=== PATIENT | male | born 1950 | race Caucasian/White ===

== ENCOUNTER → 2017-10-06 | Outpatient (CLI) | payer MEDICARE ==
[~2017-10-06] MED LIST: ALBU3IS INH; ASCO500 PO; ASPI81EC PO; Amiodarone HCl400 MG PO; BUDE6HFA INH; BUPR75 PO; CLON.5 PO; Carbidopa-Levo1 EAC1 PO; FERR325 PO; FISH1000 PO; Flonase 0.05% N16 GM; GABA300 PO; LOSA50 PO; METO50 PO; MINO50 PO; MONT10T PO; Neupro1 EAC1 TOP; Norco 5-325 Ta1 EACH PO; POTCHL20ER PO; SERT50 PO; SPIR25 PO; TEMA15 PO; TIOT18 INH; TORSE20 PO; Toprol Xl50 MG PO; Viagra100 MG PO; XARELTO20 MG PO
== END | disposition home or self-care (01) ==
LOC: OLS 07:00
DX: R05 Cough (principal)
CPT/HCPCS: 87070; 87205

== ENCOUNTER 2017-10-14 15:56 | Emergency (ER) | payer MEDICARE ==
[~2017-10-14] VITALS: Ht 177.8 cm; Wt 136.1 kg
[2017-10-14 18:35] LABS: BASOPHILS ABSOLUTE AUTO 0.06 K/mm3 (0.00-0.23); BASOPHILS PERCENT AUTO 0 % (0-2); EOSINOPHILS ABSOLUTE AUTO 0.28 K/mm3 (0.00-0.68); EOSINOPHILS PERCENT AUTO 2 % (0-6); Hemoglobin 12.6 g/dL (13.5-17.5); IMMATURE GRAN ABSOLUTE AUTO 0.16 K/mm3 (0.00-0.10); IMMATURE GRAN PERCENT AUTO 1 % (0-1); LYMPHOCYTES ABSOLUTE AUTO 3.78 K/mm3 (0.84-5.20); LYMPHOCYTES PERCENT AUTO 22 % (21-46); MONOCYTES ABSOLUTE AUTO 1.05 K/mm3 (0.16-1.47); MONOCYTES PERCENT AUTO 6 % (4-13); Mean Corpuscular HGB 27.5 pg (26.0-34.0); Mean Corpuscular HGB Conc 33.2 g/dL (31.5-36.5); Mean Corpuscular Volume 83 fL (80-100); Mean Platelet Volume 8.8 fL (9.1-12.4); NEUTROPHILS ABSOLUTE AUTO 11.52 K/mm3 (1.96-9.15); NEUTROPHILS PERCENT AUTO 68 % (41-73); Platelet Count 312 K/mm3 (150-400); RDW Coefficient Variation 15.4 % (11.7-14.2); RDW Standard Deviation 46.5 fL (35.1-46.3); Red Blood Cell Count 4.58 M/mm3 (4.30-5.90); White Blood Cell Count 16.85 K/mm3 (4.00-11.30)
[2017-10-14 18:37] LABS: Source, Urine Catheter
[2017-10-14 18:43] LABS: Bilirubin, Urine Neg (Neg); Blood, Urine 2+ (Neg); Glucose Qualitative, Urine Neg (Neg); Ketones, Urine Neg (Neg); Leukocyte Esterase, Urine Neg (Neg); Nitrite, Urine Neg (Neg); Protein, Urine Neg (Neg); Urobilinogen, Urine NORM (Normal)
[2017-10-14 18:50] LABS: Color, Urine Pale Yellow (P-Yellow)
[2017-10-14 18:51] LABS: Appearance, Urine Clear (Clear)
[2017-10-14 18:53] LABS: White Blood Cells, Urine 0-2 /hpf (0-5)
[2017-10-14 18:54] LABS: Bacteria Few /hpf; Squamous Epithelial Cells Not Seen /hpf (Few)
[2017-10-14 19:22] LABS: Bun/Creatinine Ratio 33.9 (12.0-20.0); Calcium, Blood 9.2 mg/dL (8.5-10.1); Creatinine, Blood 1.65 mg/dL (0.60-1.20); Potassium, Blood 3.8 mmol/L (3.5-5.5)
== END 2017-10-14 20:15 | disposition home or self-care (01) ==
LOC: ER 15:56
PROVIDERS: Emergency Medicine
DX: N32.0 Bladder-neck obstruction (principal); I10 Essential (primary) hypertension; I48.91 Unspecified atrial fibrillation
CPT/HCPCS: 36415; 51702; 80048; 81001; 85025; 99283

== ENCOUNTER → 2018-10-23 | Outpatient (CLI) | payer MEDICARE | END | disposition home or self-care (01) | LOC: LAB SHORT 12:04 → LAB 12:04 | DX: R05 Cough (principal) | CPT/HCPCS: 87070; 87205 ==

== ENCOUNTER 2019-07-16 06:19 | Day surgery (SDC) | payer MEDICARE ==
[~2019-07-16] VITALS: Ht 177.8 cm; Wt 145.0 kg
[~2019-07-16 06:19] MED LIST changes: +Ipratropium Bro30 ML; +Neupro1 EAC1 TD; +TRAZ50 PO
[2019-07-16] MEDS ORDERED: AMLO10 PO (07:00)
--- NOTE | 2019-07-16 07:09 | NUR ---
CONSUELO TANG RN STARTED IV; 20 G LEFT HAND.
--- NOTE | 2019-07-16 07:14 | NUR ---
DR CALDERON IN ROOM TO SEE PT.
--- NOTE | 2019-07-16 07:43 | NUR ---
TWO 200 J SYNCHRONIZED SHOCKS DELIVERED; PT TOLERATED WELL.
--- NOTE | 2019-07-16 07:57 | NUR ---
PT'S IN ROOM; CALL LIGHT IN REACH. PT DENIES CHEST PAIN.
--- NOTE | 2019-07-16 08:52 | NUR ---
DISCHARGE INSTRUCTIONS REVIEWED ALL QUESTIONS ANSWERED. 20 G IV DISCONTINUED FROM LEFT HAND WITH INTACT CANNULA. PT ESCORTED OUT VIA WHEELCHAIR ESCORT.
== END 2019-07-16 22:39 | disposition home or self-care (01) ==
LOC: MHTC 06:19
DX: I48.0 Paroxysmal atrial fibrillation (principal); I11.9 Hypertensive heart disease without heart failure; I51.89 Other ill-defined heart diseases; J44.9 Chronic obstructive pulmonary disease, unspecified; E66.2 Morbid (severe) obesity with alveolar hypoventilation; Z68.42 Body mass index [BMI] 45.0-49.9, adult; Z79.01 Long term (current) use of anticoagulants; Z79.51 Long term (current) use of inhaled steroids; Z79.899 Other long term (current) drug therapy; Z99.89 Dependence on other enabling machines and devices; Z87.891 Personal history of nicotine dependence; Z88.8 Allergy status to other drugs, medicaments and biological substances; Z91.040 Latex allergy status; Z91.038 Other insect allergy status; Z91.030 Bee allergy status
CPT/HCPCS: 92960; 93005; 93010; J0282; J7120

== ENCOUNTER 2020-04-18 14:42 | Day surgery (SDC) | payer OTHER, MEDICARE ==
[~2020-04-18 14:42] MED LIST changes: +AMLO10 PO
[2020-04-18] MEDS ORDERED: NEUPRO TD (17:57)
[2020-04-18] MEDS ORDERED: CARBLEV25 SL (17:59)
[2020-04-18] MEDS ORDERED: SENNA LAXATIVE8.6 MG PO (18:00)
[2020-04-18] MEDS ORDERED: XARELTO20 MG PO (18:01)
== END 2020-04-18 17:10 | disposition home or self-care (01) ==
LOC: ATC 14:42
DX: A41.02 Sepsis due to Methicillin resistant Staphylococcus aureus (principal); Z88.8 Allergy status to other drugs, medicaments and biological substances; Z91.040 Latex allergy status
CPT/HCPCS: 36569; C1751

== ENCOUNTER → 2021-07-17 | Outpatient (CLI) | payer MEDICARE ==
[~2021-07-17] MED LIST changes: +CARBLEV25 SL; +NEUPRO TD; +SENNA LAXATIVE8.6 MG PO
[2021-07-18 12:40] LABS: Stool Occult Bld Immuno 1 Positive (NEGATIVE)
== END | disposition home or self-care (01) ==
LOC: LAB SHORT 15:00
PROVIDERS: Internal Medicine
DX: R63.4 Abnormal weight loss (principal)
CPT/HCPCS: G0328

== ENCOUNTER → 2021-08-20 | Outpatient (CLI) | payer MEDICARE ==
[2021-08-20 07:39] LABS: Source, Urine Catheter
[2021-08-20 09:49] LABS: Appearance, Urine Clear (Clear); Bilirubin, Urine Neg (Neg); Blood, Urine 1+ (Neg); Color, Urine Yellow (P-Yellow); Glucose Qualitative, Urine Neg (Neg); Ketones, Urine Neg (Neg); Leukocyte Esterase, Urine 1+ (Neg); Nitrite, Urine Neg (Neg); Protein, Urine 1+ (Neg); Urobilinogen, Urine NORM (Normal)
[2021-08-20 10:51] LABS: Bacteria Mod /hpf; Squamous Epithelial Cells Rare /hpf (Few)
== END | disposition home or self-care (01) ==
LOC: LAB SHORT 07:38 → LAB 07:38
PROVIDERS: Internal Medicine
DX: N39.0 Urinary tract infection, site not specified (principal)
CPT/HCPCS: 81001; 87077; 87086; 87186

== ENCOUNTER 2022-03-29 11:44 | Day surgery (SDC) | payer MEDICARE ==
[~2022-03-29 11:44] MED LIST changes: +AMIODARONE HCL400 M2 PO; -Amiodarone HCl400 MG PO; +METF500 PO; +MOME220I INH
[2022-03-29 12:51] LABS: Bun/Creatinine Ratio 27.6 (12.0-20.0); Calcium, Blood 9.2 mg/dL (8.5-10.1); Creatinine, Blood 0.94 mg/dL (0.60-1.20); Magnesium, Blood 2.2 mg/dL (1.6-2.4); Potassium, Blood 3.9 mmol/L (3.5-5.5)
--- NOTE | 2022-03-29 13:27 | NUR ---
PT HERE FOR CARDIOVERSION FOR AF, PADS PLACED, DR ROD HERE FOR ANESTHESIA, IV 20 G R FA STARTED BY PETER Flowers RN. PRESENT. LABS REVIEWED WITH DR SARABIA, DIRECTED T WAITING ROOM DURING PROCEDURE. 1 SHOCK 200J SUCCESSFUL. PT AWAKE NOW WITH PRESENT. DR ROD OUT NOW, AND PATIENT REVIEWING PLAN OF CARE WITH DR SARABIA. PT WILL DC BY WC WITH DRIVING PT HOME, IV DC'D INTACT, VS STABLE AND IN SINUS HR 66 NOW.
--- NOTE | 2022-03-29 14:07 | NUR ---
PT DC'D BY WC WITH DRIVING, IV DC' INTACT
== END 2022-03-29 23:24 | disposition home or self-care (01) ==
LOC: MHTC 11:44
PROVIDERS: Internal Medicine Cardiovascular Disease
DX: I48.91 Unspecified atrial fibrillation (principal); I11.0 Hypertensive heart disease with heart failure; I50.30 Unspecified diastolic (congestive) heart failure; I77.810 Thoracic aortic ectasia; E66.01 Morbid (severe) obesity due to excess calories; J44.9 Chronic obstructive pulmonary disease, unspecified; Z91.040 Latex allergy status; Z88.8 Allergy status to other drugs, medicaments and biological substances; Z79.01 Long term (current) use of anticoagulants; Z79.899 Other long term (current) drug therapy
CPT/HCPCS: 80048; 83735; 92960; J7030

== ENCOUNTER 2024-10-24 17:50 | Emergency (ER) | payer MEDICARE ==
[~2024-10-24] VITALS: Ht 177.8 cm; Wt 158.8 kg
[~2024-10-24 17:50] MED LIST changes: +CEFD300 PO; +DOXE10 PO
[2024-10-24] MEDS ORDERED: Acetaminophen 500 MG Tab PO ONE (18:05)
[2024-10-24 18:41] LABS: BASOPHILS ABSOLUTE AUTO 0.06 K/mm3 (0.00-0.23); BASOPHILS PERCENT AUTO 0 % (0-2); EOSINOPHILS ABSOLUTE AUTO 0.05 K/mm3 (0.00-0.68); EOSINOPHILS PERCENT AUTO 0 % (0-6); Hematocrit 38.8 % (37.0-53.0); IMMATURE GRAN ABSOLUTE AUTO 0.28 K/mm3 (0.00-0.10); IMMATURE GRAN PERCENT AUTO 1 % (0-1); LYMPHOCYTES ABSOLUTE AUTO 1.87 K/mm3 (0.84-5.20); LYMPHOCYTES PERCENT AUTO 7 % (21-46); MONOCYTES ABSOLUTE AUTO 1.75 K/mm3 (0.16-1.47); MONOCYTES PERCENT AUTO 7 % (4-13); Mean Corpuscular HGB 28.1 pg (26.0-34.0); Mean Corpuscular HGB Conc 33.5 g/dL (31.5-36.5); Mean Corpuscular Volume 84 fL (80-100); Mean Platelet Volume 8.4 fL (9.1-12.4); NEUTROPHILS ABSOLUTE AUTO 22.77 K/mm3 (1.96-9.15); NEUTROPHILS PERCENT AUTO 85 % (41-73); Platelet Count 335 K/mm3 (150-400); RDW Coefficient Variation 14.2 % (11.7-14.2); RDW Standard Deviation 43.6 fL (35.1-46.3); Red Blood Cell Count 4.62 M/mm3 (4.30-5.90); White Blood Cell Count 26.78 K/mm3 (4.00-11.30)
[2024-10-24 19:02] LABS: Albumin, Blood 3.3 g/dL (3.4-5.0); Albumin/Globulin Ratio 0.7 (0.8-1.8); Bilirubin, Total 0.4 mg/dL (0.1-1.0); Bun/Creatinine Ratio 22.8 (12.0-20.0); Calcium, Blood 9.8 mg/dL (8.5-10.1); Creatinine, Blood 0.97 mg/dL (0.60-1.20); Globulin, Blood 4.5 g/dL (2.2-4.0); Potassium, Blood 3.9 mmol/L (3.5-5.5); Total Protein, Blood 7.8 g/dL (6.4-8.2)
[2024-10-24 19:37] LABS: CORONAVIRUS COVID-19 AG Negative (NEGATIVE); INFLUENZA A AG Negative (NEGATIVE); INFLUENZA B AG Negative (NEGATIVE)
[2024-10-24 20:42] LABS: Source, Urine Straight Cath
[2024-10-24 20:55] LABS: Appearance, Urine Cloudy (Clear); Bilirubin, Urine Neg (Neg); Blood, Urine 3+ (Neg); Color, Urine Yellow (P-Yellow); Glucose Qualitative, Urine Neg (Neg); Ketones, Urine Neg (Neg); Leukocyte Esterase, Urine 3+ (Neg); Nitrite, Urine Pos (Neg); Protein, Urine 2+ (Neg); Urobilinogen, Urine NORM (Normal)
[2024-10-24 21:03] LABS: Bacteria Many /hpf; Squamous Epithelial Cells Not Seen /hpf (Few); White Blood Cells, Urine 25-50 /hpf (0-5)
[2024-10-24] MEDS ORDERED: CefTRIAXone Sodium 1,000 MG in NS 50 ML IV ONE (21:05)
[2024-10-24] MEDS ORDERED: Macrobid 100 M100 MG PO (21:17)
[2024-10-24 21:45] VITALS: BP 154/70
== END 2024-10-24 21:50 | disposition home or self-care (01) ==
LOC: ER 17:50
PROVIDERS: Emergency Medicine
DX: N39.0 Urinary tract infection, site not specified (principal); I11.0 Hypertensive heart disease with heart failure; E78.5 Hyperlipidemia, unspecified; I48.91 Unspecified atrial fibrillation; J44.9 Chronic obstructive pulmonary disease, unspecified; Z91.038 Other insect allergy status; Z91.040 Latex allergy status; Z79.899 Other long term (current) drug therapy; Z79.01 Long term (current) use of anticoagulants; Z79.51 Long term (current) use of inhaled steroids; Z79.891 Long term (current) use of opiate analgesic
CPT/HCPCS: 71045; 80053; 81001; 83880; 85025; 87077; 87086; 87186; 87428-QW; 93005; 93010; 96365; 99284-25; A9270; J0696